=== PATIENT | female | born 1935 | race Caucasian/White ===

== ENCOUNTER → 2024-03-05 07:19 | Outpatient (REF) | payer OTHER, SELFPAY ==
[2024-03-05 08:37] LABS: % Basophils 0.3 % (0-2); % Immature Granulocytes 0.3 % (0-0.5); % Lymphocytes 33.7 % (20.5-51.1); % Monocytes 10.9 % (1.7-9.3); % Neutrophils 53.8 % (42.2-75.2); Absolute Eosinophils 0.1 10^3/uL (0-0.7); Absolute Lymphocytes 2.6 10^3/uL (1.2-3.4); Absolute Monocytes 0.8 10^3/uL (0.1-0.6); Absolute Neutrophils 4.1 10^3/uL (1.4-6.5); Hematocrit 40.2 % (37.0-47.0); Hemoglobin 13.5 g/dL (12.0-16.0); Mean Corp Hgb Conc. 33.6 g/dL (33.0-37.0); Mean Corpuscular Hgb 30.4 pg (27.0-31.0); Mean Corpuscular Volume 90.5 fL (81.0-99.0); Mean Platelet Volume 10.3 fL (7.4-10.4); Nucleated Red Blood Cells % 0 %; Platelet Count 217 10^3/uL (130-400); Red Blood Cell Count 4.44 10^6/uL (4.20-5.40); Red Cell Dist. Width 13.5 % (11.5-14.5); White Blood Cell Count 7.7 10^3/uL (4.8-10.8)
[2024-03-05 08:54] LABS: ALT (SGPT) 22 U/L (0-35); AST (SGOT) 29 U/L (14-36); Albumin 4.5 g/dl (3.5-5.0); Alkaline Phosphatase 94 U/L (38-126); Blood Urea Nitrogen 20 mg/dl (7-17); Calcium 9.7 mg/dl (8.4-10.2); Carbon Dioxide 28 mmol/L (22-30); Chloride 104 mmol/L (98-107); Glucose 104 mg/dl (70-99); HDL Cholesterol 55 mg/dl; LDL Cholesterol, Calculated 42 mg/dl; Potassium 4.3 mmol/L (3.5-5.1); Sodium 139 mmol/L (135-145); Total Bilirubin 1.1 mg/dl (0.2-1.3); Total Cholesterol 121 mg/dl (50-199); Total Protein 7.3 g/dl (6.3-8.2); Triglyceride 123 mg/dl (10-149); Very Low Density Lipoprotein 24 mg/dl (0-30); eGFR > 60.00
[2024-03-05 09:17] LABS: Microalbumin, Random Urine 3.7 mg/dl (0.6-1.7)
[2024-03-05 09:23] LABS: TSH 1.97 uIU/ml (0.47-4.68)
[2024-03-05 09:31] LABS: Glycohemoglobin (HgbA1c) 6.2 % (4.0-5.6)
[2024-03-05 11:02] LABS: Intact PTH 152.8 pg/ml (13.6-85.8)
== END ==
LOC: REG 07:19
PROVIDERS: ATTENDING PHYSICIAN Family Medicine
DX: E78.00 Pure hypercholesterolemia, unspecified (principal); N18.31 Chronic kidney disease, stage 3a; I11.9 Hypertensive heart disease without heart failure; I48.19 Other persistent atrial fibrillation
CPT/HCPCS: 36415; 80053; 80061; 82043; 82570; 83036; 83970; 84443; 85025

== ENCOUNTER → 2024-05-11 08:57 | Outpatient (REF) | payer OTHER, SELFPAY ==
[2024-05-11 12:10] LABS: % Basophils 0.3 % (0-2); % Eosinophils 1.2 % (0-6); % Immature Granulocytes 0.1 % (0-0.5); % Lymphocytes 33.9 % (20.5-51.1); % Monocytes 10.5 % (1.7-9.3); Absolute Eosinophils 0.1 10^3/uL (0-0.7); Absolute Monocytes 0.9 10^3/uL (0.1-0.6); Absolute Neutrophils 4.8 10^3/uL (1.4-6.5); Hematocrit 41.7 % (37.0-47.0); Hemoglobin 13.9 g/dL (12.0-16.0); Mean Corp Hgb Conc. 33.3 g/dL (33.0-37.0); Mean Corpuscular Hgb 29.9 pg (27.0-31.0); Mean Corpuscular Volume 89.7 fL (81.0-99.0); Mean Platelet Volume 10.5 fL (7.4-10.4); Nucleated Red Blood Cells % 0 %; Platelet Count 259 10^3/uL (130-400); Red Blood Cell Count 4.65 10^6/uL (4.20-5.40); Red Cell Dist. Width 13.5 % (11.5-14.5); White Blood Cell Count 8.8 10^3/uL (4.8-10.8)
[2024-05-11 12:18] LABS: ALT (SGPT) 25 U/L (0-35); AST (SGOT) 33 U/L (14-36); Albumin 4.7 g/dl (3.5-5.0); Alkaline Phosphatase 95 U/L (38-126); Blood Urea Nitrogen 28 mg/dl (7-17); Calcium 9.9 mg/dl (8.4-10.2); Carbon Dioxide 28 mmol/L (22-30); Chloride 104 mmol/L (98-107); Glucose 94 mg/dl (70-99); HDL Cholesterol 53 mg/dl; LDL Cholesterol, Calculated 74 mg/dl; Potassium 4.9 mmol/L (3.5-5.1); Sodium 139 mmol/L (135-145); Total Bilirubin 1.1 mg/dl (0.2-1.3); Total Cholesterol 153 mg/dl (50-199); Total Protein 7.8 g/dl (6.3-8.2); Triglyceride 133 mg/dl (10-149); Very Low Density Lipoprotein 26 mg/dl (0-30); eGFR > 60.00
[2024-05-11 12:29] LABS: Glycohemoglobin (HgbA1c) 6.2 % (4.0-5.6)
[2024-05-11 12:40] LABS: Intact PTH 149.4 pg/ml (13.6-85.8)
[2024-05-11 12:48] LABS: TSH 2.07 uIU/ml (0.47-4.68)
[2024-05-11 13:34] LABS: Microalbumin, Random Urine 2.5 mg/dl (0.6-1.7)
[2024-05-11 13:35] LABS: Microalbumin/creatinine Ratio 14.4 mg/g
== END ==
LOC: HWLAB 08:57
PROVIDERS: ATTENDING PHYSICIAN Family Medicine
DX: N18.31 Chronic kidney disease, stage 3a (principal); R73.03 Prediabetes; E78.00 Pure hypercholesterolemia, unspecified; I11.9 Hypertensive heart disease without heart failure; I48.19 Other persistent atrial fibrillation
CPT/HCPCS: 80053; 80061; 82043; 82570; 83036; 83970; 84443; 85025

== ENCOUNTER → 2024-11-22 07:45 | Outpatient (REF) | payer OTHER, SELFPAY ==
[2024-11-22 09:32] LABS: % Basophils 0.4 % (0-2); % Eosinophils 2.1 % (0-6); % Immature Granulocytes 0.1 % (0-0.5); % Lymphocytes 33.5 % (20.5-51.1); % Monocytes 9.8 % (1.7-9.3); % Neutrophils 54.1 % (42.2-75.2); Absolute Eosinophils 0.2 10^3/uL (0-0.7); Absolute Lymphocytes 2.5 10^3/uL (1.2-3.4); Absolute Monocytes 0.7 10^3/uL (0.1-0.6); Absolute Neutrophils 4.1 10^3/uL (1.4-6.5); Hematocrit 40.3 % (37.0-47.0); Hemoglobin 12.8 g/dL (12.0-16.0); Mean Corp Hgb Conc. 31.8 g/dL (33.0-37.0); Mean Corpuscular Hgb 29.6 pg (27.0-31.0); Mean Corpuscular Volume 93.3 fL (81.0-99.0); Mean Platelet Volume 9.8 fL (7.4-10.4); Nucleated Red Blood Cells % 0 %; Platelet Count 293 10^3/uL (130-400); Red Blood Cell Count 4.32 10^6/uL (4.20-5.40); Red Cell Dist. Width 13.2 % (11.5-14.5); White Blood Cell Count 7.6 10^3/uL (4.8-10.8)
[2024-11-22 09:57] LABS: ALT (SGPT) 22 U/L (0-35); AST (SGOT) 28 U/L (14-36); Albumin 4.5 g/dl (3.5-5.0); Alkaline Phosphatase 98 U/L (38-126); Blood Urea Nitrogen 15 mg/dl (7-17); Calcium 9.7 mg/dl (8.4-10.2); Carbon Dioxide 29 mmol/L (22-30); Chloride 98 mmol/L (98-107); Glucose 98 mg/dl (70-99); HDL Cholesterol 41 mg/dl; LDL Cholesterol, Calculated 47 mg/dl; Potassium 4.7 mmol/L (3.5-5.1); Sodium 137 mmol/L (135-145); Total Bilirubin 0.9 mg/dl (0.2-1.3); Total Cholesterol 113 mg/dl (50-199); Total Protein 7.6 g/dl (6.3-8.2); Triglyceride 127 mg/dl (10-149); Very Low Density Lipoprotein 25 mg/dl (0-30); eGFR > 60.00
[2024-11-22 10:12] LABS: Vitamin D, 25-OH*** 15.3 ng/mL (30-80)
[2024-11-22 10:25] LABS: TSH Reflex To Free T4 1.98 uIU/ml (0.47-4.68)
[2024-11-22 11:57] LABS: Intact PTH 105.7 pg/ml (13.6-85.8)
== END ==
LOC: HWLAB 07:45
PROVIDERS: ATTENDING PHYSICIAN Family Medicine
DX: E21.3 Hyperparathyroidism, unspecified (principal); I11.9 Hypertensive heart disease without heart failure; I51.7 Cardiomegaly; I27.20 Pulmonary hypertension, unspecified; E78.00 Pure hypercholesterolemia, unspecified
CPT/HCPCS: 36415; 80053; 80061; 82306; 83970; 84443; 85025

== ENCOUNTER → 2024-12-09 13:20 | Outpatient (REF) | payer OTHER, SELFPAY | LOC: HWRAD 13:20 | PROVIDERS: ATTENDING PHYSICIAN Family Medicine | DX: R42 Dizziness and giddiness (principal) | CPT/HCPCS: 93880 ==

== ENCOUNTER → 2025-05-23 13:34 | Outpatient (REF) | payer OTHER, SELFPAY | LOC: HWRAD 13:34 | PROVIDERS: ATTENDING PHYSICIAN Family Medicine | DX: Z78.0 Asymptomatic menopausal state (principal) | CPT/HCPCS: 77080 ==

== ENCOUNTER → 2025-06-23 13:21 | Outpatient (REF) | payer OTHER, SELFPAY | LOC: DHVS 13:21 | PROVIDERS: ATTENDING PHYSICIAN Podiatrist Foot & Ankle Surgery; FAMILY PHYSICIAN Family Medicine; REFERRING PHYSICIAN Internal Medicine Cardiovascular Disease | DX: I70.212 Atherosclerosis of native arteries of extremities with intermittent claudication, left leg (principal); I70.211 Atherosclerosis of native arteries of extremities with intermittent claudication, right leg | CPT/HCPCS: 93922 ==

== ENCOUNTER → 2025-08-22 09:41 | Outpatient (REF) | payer OTHER, SELFPAY ==
[2025-08-22 12:29] LABS: Hematocrit 44.1 % (37.0-47.0); Hemoglobin 14.2 g/dL (12.0-16.0); Mean Corp Hgb Conc. 32.2 g/dL (33.0-37.0); Mean Corpuscular Volume 92.8 fL (81.0-99.0); Nucleated Red Blood Cells % 0 %; Platelet Count 204 10^3/uL (130-400); Red Cell Dist. Width 14.0 % (11.5-14.5)
[2025-08-22 12:56] LABS: ALT (SGPT) 21 U/L (0-35); AST (SGOT) 26 U/L (14-36); Albumin 4.5 g/dl (3.5-5.0); Alkaline Phosphatase 93 U/L (38-126); Blood Urea Nitrogen 17 mg/dl (7-17); Calcium 9.4 mg/dl (8.4-10.2); Carbon Dioxide 28 mmol/L (22-30); Chloride 104 mmol/L (98-107); Glucose 93 mg/dl (70-99); Potassium 4.8 mmol/L (3.5-5.1); Sodium 138 mmol/L (135-145); Total Protein 7.6 g/dl (6.3-8.2); eGFR > 60.00
[2025-08-22 12:57] LABS: Glycohemoglobin (HgbA1c) 6.1 % (4.0-5.6)
[2025-08-22 13:10] LABS: Vitamin D, 25-OH*** 57.8 ng/mL (30-80)
== END ==
LOC: HWLAB 09:41
PROVIDERS: ATTENDING PHYSICIAN Family Medicine
DX: E55.9 Vitamin D deficiency, unspecified (principal); I13.0 Hypertensive heart and chronic kidney disease with heart failure and stage 1 through stage 4 chronic kidney disease, or unspecified chronic kidney disease; I51.7 Cardiomegaly; D68.69 Other thrombophilia; N18.31 Chronic kidney disease, stage 3a; R73.03 Prediabetes; R05.1 Acute cough
CPT/HCPCS: 36415; 71046; 80053; 82306; 83036; 83970; 84443; 85025